=== PATIENT | male | born 1955 | race Caucasian/White ===

== ENCOUNTER → 2024-03-03 08:24 | Outpatient (REF) | payer BC, SELFPAY | LOC: DHCBC MAIN 08:24 | PROVIDERS: ATTENDING PHYSICIAN Internal Medicine Cardiovascular Disease; FAMILY PHYSICIAN Physician Assistant Medical | DX: R03.0 Elevated blood-pressure reading, without diagnosis of hypertension (principal); I44.4 Left anterior fascicular block; R40.4 Transient alteration of awareness | CPT/HCPCS: 93306 ==

== ENCOUNTER → 2025-02-05 07:36 | Outpatient (REF) | payer BC, SELFPAY | LOC: RAD 07:36 | PROVIDERS: ATTENDING PHYSICIAN Surgery Vascular Surgery; FAMILY PHYSICIAN Physician Assistant Medical | DX: I73.9 Peripheral vascular disease, unspecified (principal); I73.00 Raynaud's syndrome without gangrene | CPT/HCPCS: 75635; Q9967 ==

== ENCOUNTER → 2025-02-08 07:06 | Outpatient (REF) | payer BC, SELFPAY | LOC: RAD 07:06 | PROVIDERS: ATTENDING PHYSICIAN Surgery Vascular Surgery; FAMILY PHYSICIAN Physician Assistant Medical | DX: I73.00 Raynaud's syndrome without gangrene (principal) | CPT/HCPCS: 71275; Q9967 ==

== ENCOUNTER → 2025-02-15 10:05 | Outpatient (REF) | payer BC, SELFPAY | LOC: DHVS 10:05 | PROVIDERS: ATTENDING PHYSICIAN Surgery Vascular Surgery | DX: I73.9 Peripheral vascular disease, unspecified (principal); I73.00 Raynaud's syndrome without gangrene | CPT/HCPCS: 93922 ==